=== PATIENT | female | born 1985 | race Caucasian/White ===

== ENCOUNTER → 2018-02-18 16:30 | Outpatient (CLI) | payer BC, SELFPAY ==
--- NOTE | 2018-02-18 16:43 | RAD_ITS ---
STUDY: X-RAY CHEST REASON FOR EXAM: Female, 32 years old. Chest pain TECHNIQUE: PA and lateral COMPARISON: None. FINDINGS: The lungs are clear and expanded. There is no demonstrated pleural abnormality. Normal size heart. Normal mediastinum and codie. Normal visualized pulmonary arteries. Normal visualized aortic arch and descending thoracic aorta. Normal visualized thoracic spine. Normal visualized ribs, clavicles, and shoulders. There is no demonstrated abnormality of the visualized soft tissue structures of the upper abdomen. RAD/Chest PA and Lateral IMPRESSION: Normal x-ray examination of the chest. Electronically Signed: James Lawrence MD at 6:58 EDT , Service support ,
[2018-02-18 17:46] LABS: Prothrombin Time (Protime)PT. 13.4 SECONDS (11.7-14.9)
[2018-02-18 17:47] LABS: Partial Thromboplast Time 23.8 Seconds (24.1-36.2)
[2018-02-18 17:50] LABS: Absolute Lymphocyte Count 0.78 X10^3/ul (0.83-4.51); Absolute Neutrophil Count 5.2 X10^3/uL (2.0-7.7); Basophil# 0.05 X10^3/uL; Basophil% 0.8 % (0-1); Eosinophil# 0.01 X10^3/uL; Eosinophils% 0.2 % (0-5); Hematocrit 36.3 % (37-47); Hemoglobin 12.1 g/dl (12.0-15.0); Lymphocyte # 0.78 X10^3/ul (4.0); Lymphocyte % 11.8 % (19-41); Mean Corp Hgb Conc 33.3 g/gl (32-36); Mean Corpuscular Hgb 32.5 pg (27.0-32.0); Mean Corpuscular Volume 97.6 fL (81-99); Mean Platelet Vol. 10.1 fl (6.2-12.0); Monocyte# 0.58 X10^3/uL; Monocyte% 8.8 % (0-10); Neutrophil # 5.17 X10^3/uL (2.7-7.7); Neutrophil % 77.9 % (47-70); Platelet Count 195 K/mm3 (150-450); RBC Distribution Width CV 12.7 % (11.6-14.6); RBC Distribution Width SD 44.2 fl (35.1-43.9); Red Blood Count 3.72 M/mm3 (4.2-5.4); White Blood Count 6.6 K/mm3 (4.4-11.0)
[2018-02-18 17:54] LABS: ALB/GLOB Ratio 0.7 RATIO (0.9-2.4); AST(SGOT) 25 U/L (15-37); Alanine Aminotransfer ALT/SGPT 38 U/L (13-56); Albumin, Serum 3.2 g/dL (3.2-5.0); Alkaline Phosphatase 66 U/L (45-117); Anion Gap 7 (5-15); BUN 11 mg/dL (7-18); BUN/Creat Ratio 13.3 RATIO (10-20); Calcium,Total 8.8 mg/dL (8.5-10.1); Chloride 106 mmol/L (98-107); Creatinine, Serum 0.83 mg/dL (0.55-1.02); EST Glomerular Filtration Rate 84 mL/min (>60); Est Glom Filt Rate - Afr Amer 102 mL/min (>60); Globulin 4.3 g/dL (2.2-4.2); Glucose 85 mg/dL (74-106); POSITIVE COUNT NO; POSITIVE DIFFERENTIAL NO; POSITIVE MORPHOLOGY NO; Potassium 3.9 mmol/L (3.5-5.1); Protein, Total 7.5 g/dL (6.4-8.2); Protein, Urine (Random) 92.1 mg/dL (<11.9); Protein:Creat Ratio 965 mg/g CRE (0-200); Rheumatoid Factor < 10.0 IU/mL (<15); Sodium Level 142 mmol/L (136-145)
[2018-02-18 18:29] LABS: Erythrocyte Sedimentation Rate 9 mm/hr (0-20)
[2018-02-21 20:13] LABS: Anti-Centromere B Ab <0.2 AI (0.0-0.9); Anti-Jo <0.2 AI (0.0-0.9); Anti-Scleroderma-70 AB 0.4 AI (0.0-0.9); RNP Ab >8.0 AI (0.0-0.9); SJOGREN'S Anti-SS-A test 0.2 AI (0.0-0.9); SJOGREN'S Anti-SS-B test < 0.2 AI (0.0-0.9); Smith Ab >8.0 AI (0.0-0.9)
[2018-02-22 13:26] LABS: ANTINUCLEAR ANTIBODIES DIRECT Positive (Negative); Anti-dsDNA Ab >300 IU/mL (0-9)
[2018-02-25 03:07] LABS: Complement C3 72 mg/dL (82-167); HEPATITIS B SURFACE AG Negative (Negative); Hexagonal Phase Phospholipid 0 sec (0-11); PTT-Lupus Anticoagulant 26.7 sec (0.0-51.9); QNTFERON TB Ag Minus Nil Value 0 IU/mL (.); QNTFERON TB Ag Value 0.03 IU/mL (.); QNTFERON TB Mitogen Value > 10.00 IU/mL (.); QNTFERON TB Nil Value 0.03 IU/mL (.); Thrombin Time 18.2 sec (0.0-23.0)
[2018-02-25 10:56] LABS: CCP IgG Antibodies 10 units (0-19); Hep B Surface Antibodies Reactive (.); Hep C Antibodies <0.1 s/co ratio (0.0-0.9); QNTIFERON TB Gold Negative (Negative)
== END ==
PROVIDERS: Visit Provider Internal Medicine Rheumatology
DX: M32.9 Systemic lupus erythematosus, unspecified (principal); M79.7 Fibromyalgia
CPT/HCPCS: 36415; 71046; 80053; 82570; 84156; 85025; 85598; 85610; 85652; 85670; 85730; 85732; 86038; 86140; 86160; 86200; 86225; 86235; 86431; 86480; 86706; 86803; 87340

== ENCOUNTER → 2018-03-01 07:51 | Outpatient (CLI) | payer BC, SELFPAY ==
--- NOTE | 2018-03-01 07:54 | ECHOD_ITS ---
Reason For Study: Chest Pressure increased with deep breathing Procedure This was a 2D Doppler, Color Flow transthoracic echocardiogram. The exam was of adequate technical quality. Exam performed in department. Left Ventricle Normal LV size. Apical false tendon noted. Left ventricular systolic function is normal. The estimated ejection fraction is 60 %. Normal diastology for age. No regional wall motion abnormalities noted. Right Ventricle Normal RV size. Normal systolic function. Atria Normal left atrium. Normal right atrium. No doppler evidence for ASD. Mitral Valve There is no mitral annular calcification. Normal mitral valve. Trivial mitral valve insufficiency. Tricuspid Valve Normal tricuspid valve. Mild tricuspid valve insufficiency. Right ventricular systolic pressure estimated to be 24 mmHg. Aortic Valve Trisinus/trileaflet aortic valve. Normal aortic valve. Pulmonic Valve The pulmonic valve is not well visualized. Mild (1+) pulmonic valve insufficiency. Great Vessels Normal sized aortic root. Pericardium/Pleural No pericardial effusion. MMode/2D Measurements & Calculations LVIDd: 4.4 cm IVSd: 0.76 cm Ao root diam: 2.9 cm LVIDs: 3.3 cm LVPWd: 0.90 cm LA dimension: 2.5 cm FS: 25.6 % LAV(MOD-bp): 32.0 ml LVAd ap4: 25.1 cm2 SV(MOD-sp4): 38.1 ml LAV(MOD-bp) Indexed: 20.3 ml/m2 EDV(MOD-sp4): 66.4 ml LAV(MOD-sp2): 28.8 ml EDV(sp4-el): 66.6 ml LAV(MOD-sp4): 31.2 ml LVAs ap4: 14.3 cm2 ESV(MOD-sp4): 28.3 ml ESV(sp4-el): 25.9 ml EF(MOD-sp4): 57.4 % EF(sp4-el): 61.1 % SV(sp4-el): 40.7 ml LA A4 area: 13.9 cm2 RA A4 area: 12.4 cm2 Time Measurements MV dec time: 0.22 sec Doppler Measurements & Calculations MV E max jimi: 73.6 cm/sec Lat Peak E' Jimi: 11.7 cm/sec Med Peak E' Jimi: 11.3 cm/sec MV A max jimi: 47.5 cm/sec E/E' lat: 6.3 E/E' med: 6.5 MV E/A: 1.6 MV V2 max: 76.4 cm/sec MV P1/2t max jimi: 76.4 cm/sec Ao V2 max: 125.8 cm/sec MV max P.3 mmHg MV P1/2t: 104.6 msec Ao max P.3 mmHg MV V2 mean: 45.5 cm/sec MV dec slope: 213.8 cm/sec2 Ao V2 mean: 78.3 cm/sec MV mean P.94 mmHg MVA(P1/2t): 2.1 cm2 Ao mean P.9 mmHg MV V2 VTI: 24.8 cm Ao V2 VTI: 22.6 cm LV V1 max: 101.9 cm/sec PA V2 max: 86.7 cm/sec TR max jimi: 229.1 cm/sec LV V1 max P.2 mmHg TR max P.0 mmHg LV V1 mean P.9 mmHg LV V1 mean: 64.2 cm/sec LV V1 VTI: 20.5 cm Interpretation Summary Left ventricular systolic function is normal. The estimated ejection fraction is 60 %. Apical false tendon noted. Trivial mitral valve insufficiency. Mild tricuspid valve insufficiency. Mild (1+) pulmonic valve insufficiency. Right ventricular systolic pressure estimated to be 24 mmHg. Normal diastology for age. Ordering Physician: Ashely Carrillo Referring Physician: Ashely Carrillo Performed By: Isaac Workman RCS
== END ==
PROVIDERS: Visit Provider Internal Medicine Rheumatology
DX: R07.89 Other chest pain (principal); M32.9 Systemic lupus erythematosus, unspecified; M79.7 Fibromyalgia
CPT/HCPCS: 93306

== ENCOUNTER → 2018-04-08 08:28 | Outpatient (CLI) | payer BC, SELFPAY ==
[2018-04-08] VITALS (10 sets, daily range): BP systolic 96–119; BP diastolic 58–92; PULSE 70–94; RESP 12–16; TEMP 37.2; O2SAT 94–100; BMI 20.5
--- NOTE | 2018-04-08 08:46 | CT_ITS ---
PROCEDURE: CT GUIDED PERCUTANEOUS KIDNEY BIOPSY. DATE: April 08, 2018. INDICATION: Female, 32 years old. Proteinuria. History of lupus. PHYSICIAN: Tyrone Rodriguez M.D. MEDICATIONS: 2 mg of Versed and 50 mcg fentanyl given intravenously. Conscious sedation protocol was followed and independently monitored. Conscious sedation was started at 9:43 AM and terminated at 10:01 AM. ACCESS SITE: Lower pole right kidney. NEEDLE: 18-gauge core biopsy needle SPECIMEN: 4 18-gauge cores EBL: None. COMPLICATIONS: None immediate. RADIATION DOSAGE (If Supplied By Facility): CTDIvol = ( 18 ) mGy, DLP = ( 202.82 ) mGycm. Individualized dose optimization techniques were utilized. The risks, benefits, and alternatives to the procedure and sedation were explained to the patient. The specific risk of hemorrhage requiring further treatment or intervention was detailed and accepted. Written informed consent was obtained. The patient was placed on the CT table in the prone position. Multiple axial images were obtained from the lung base through the caudal extent of the kidneys. An appropriate entry site was identified and a michele made on the skin. The skin overlying the [right ] posterior flank was prepped and draped in sterile fashion. 1% lidocaine was administered subcutaneously for local anesthesia. A 17 gauge introducer needle which was advanced. Repeat CT images confirmed good needle trajectory and tip position. The introducer needle was then advanced into the periphery of the inferior renal pole, and CT images were again obtained to confirm exact tip location. The inner stylet of the introducer needle was then removed and an 18 gauge coaxial needle was advanced thru the introducer needle and biopsy performed. A total of [ 4] passes were performed and the specimen collected was sent to Pathology for further evaluation. The needle was withdrawn. Hemostasis was achieved with manual compression and a sterile dressing was applied. Repeat CT images of the biopsy area was performed which demonstrated no gross bleeding or hematoma. The patient tolerated the procedure well without immediate complications. The patient was transported to the [floor/recovery area] in stable condition. CT/Biopsy/Inj or Needle Placement IMPRESSION: Successful CT guided percutaneous kidney biopsy. Electronically Signed: Tyrone Rodriguez MD at 10:41 EDT Tel [phone], Service support ,
[2018-04-08 08:51] LABS: Platelet Count 167 K/mm3 (150-450)
[2018-04-08 08:59] LABS: Prothrombin Time (Protime)PT. 13.4 SECONDS (11.7-14.9)
[2018-04-08 09:00] LABS: Partial Thromboplast Time 23.1 Seconds (24.1-36.2)
[2018-04-08] MEDS: Midazolam 2 MG/2 ML Syringe IV (09:43)
[2018-04-08] MEDS: fentaNYL 100 MCG/2 ML Ampul IV (09:43)
--- NOTE | 2018-04-08 10:00 | KI_PTH ---
PATIENT: EDY FOURNIER LOC: CT U#:[id number] AGE/SX: 39/F ROOM: RE04/08/[address]: Dr. Sisi Torrez MD : [id number] BED: DIS: SPEC #: [id number] RECD: 04/08/18 10:19 STATUS: ALEXIA JOSE LUIS #: [id number] EWA: 04/08/18 10:[address]: Sisi Torrez DEPT: SURGICAL PATHOLOGY RECD BY: Kathy Lemus ENTERED: 04/08/18 10:20 SP TYPE: KIDNEY BX OTHR DR: Esthela Primary Care Phys Tissues: Kidney, NOS Procedures: Electron Microscopy (ACH) Fluorescent Antibody (ACH) Sp St Grp II Kidney (ACH) Kidney Biopsy (ACH) Fluorescent antibody (ACH) add'l HEADER OPERATION: CT-guided kidney biopsy PRE-OP DIAGNOSIS: Proteinuria, lupus TISSUE SUBMITTED: Right kidney 18 gauge core x4 MICROSCOPIC DIAGNOSIS Kidney, needle biopsy: Focal active lupus nephritis, Class III (A) (ISN/RPS 2003 Classification), (10 of 29 glomeruli with active lesions, 4 with cellular crescents), see Microscopic Description and Comment. COMMENT Taken together, light immunofluorescence and electron microscopy studies show pathologic features which are consistent with an immune-complex related process. The presence of focal segmental active lesions including endocapillary proliferation and cellular crescents in the setting of systemic lupus erythematosus is indicative of Class III (A) lupus nephritis. No membranous deposits are present to warrant a concurrent Class IV categorization. MICROSCOPIC DESCRIPTION A needle biopsy is available to review. There are approximately 26 glomeruli present, 7 of which show endocapillary hypercellularity in segmental distribution and 4 of which show cellular crescents. Overall, there are 10 glomeruli that show active lesions out of 29 total glomeruli. No chronic lesions are seen. PAS and silver stain show no evidence of glomerular basement membrane duplication or spikes. Trichrome stain highlights scattered fuchsinophilic immune-type deposits. There is only minimal interstitial fibrosis and tubular atrophy. There is a diffuse mild to focally moderate inflammatory infiltrate composed predominantly of lymphocytes. Tubules appear relatively unremarkable. Vessels show no significant arterio- or arteriolosclerosis. IMMUNOFLUORESCENCE: The tissue submitted for immunofluorescence studies contains 9 glomeruli. There is granular glomerular staining for IgG (3+), IgA (2+), IgM (2+), C3 (4+), C1q (1+). Albumin and fibrinogen show nonspecific staining. ELECTRON MICROSCOPY: The tissue submitted for electron microscopy contains glomeruli. Two glomeruli are imaged. Ultrastructural examination reveals that the glomerular capillary loops are partially compressed in areas with increased mesangial matrix material and hypercellularity. The glomerular basement membranes show some variable thickening and are somewhat irregular in contour. There are occasional subendothelial electron densities along with mesangial electron-dense deposits. No definitive subepithelial deposits are appreciated. Visceral epithelial foot processes show no significant increase in effacement. Tubules appear unremarkable. GROSS DESCRIPTION The specimen is sent entirely to [facility] for diagnosis. The case is received in one container labeled with the patient's name and medical record number and consists of five cores of white-fontenot tissue measuring 1.8, 1.7, 0.8, 0.7 and 0.7 cm in length. Tissue is processed for light, immunofluorescence and electron microscopy studies.
== END ==
PROVIDERS: Referring Provider Internal Medicine Nephrology; Visit Provider Internal Medicine Nephrology
DX: R80.9 Proteinuria, unspecified (principal)
CPT/HCPCS: 50200; 36415; 77012; 85049; 85610; 85730; 88305; 88313; 88346; 88348; 88350; 99156; 99157; J7040; A4216

== ENCOUNTER → 2018-04-15 09:25 | Outpatient (CLI) | payer BC, SELFPAY ==
[2018-04-15 10:27] LABS: Absolute Lymphocyte Count 0.35 X10^3/ul (0.83-4.51); Absolute Neutrophil Count 8.5 X10^3/uL (2.0-7.7); Basophil# 0.01 X10^3/uL; Basophil% 0.1 % (0-1); Eosinophil# 0.01 X10^3/uL; Eosinophils% 0.1 % (0-5); Hemoglobin 12.7 g/dl (12.0-15.0); Lymphocyte # 0.35 X10^3/ul (4.0); Lymphocyte % 3.8 % (19-41); Mean Corp Hgb Conc 33.4 g/gl (32-36); Mean Corpuscular Hgb 32.3 pg (27.0-32.0); Mean Corpuscular Volume 96.7 fL (81-99); Mean Platelet Vol. 9.7 fl (6.2-12.0); Monocyte# 0.23 X10^3/uL; Monocyte% 2.5 % (0-10); Neutrophil # 8.47 X10^3/uL (2.7-7.7); Neutrophil % 92.8 % (47-70); Platelet Count 201 K/mm3 (150-450); RBC Distribution Width CV 11.9 % (11.6-14.6); RBC Distribution Width SD 40.9 fl (35.1-43.9); Red Blood Count 3.93 M/mm3 (4.2-5.4); White Blood Count 9.1 K/mm3 (4.4-11.0)
[2018-04-15 10:31] LABS: Differential Indicated SCAN CRITERIA MET; POSITIVE COUNT NO; POSITIVE DIFFERENTIAL YES; POSITIVE MORPHOLOGY NO
[2018-04-15 10:54] LABS: ALB/GLOB Ratio 0.7 RATIO (0.9-2.4); AST(SGOT) 18 U/L (15-37); Alanine Aminotransfer ALT/SGPT 16 U/L (13-56); Albumin, Serum 2.8 g/dL (3.2-5.0); Alkaline Phosphatase 61 U/L (45-117); Anion Gap 5 (5-15); BUN 8 mg/dL (7-18); BUN/Creat Ratio 11.9 RATIO (10-20); Calcium,Total 8.1 mg/dL (8.5-10.1); Chloride 106 mmol/L (98-107); Creatinine, Serum 0.67 mg/dL (0.55-1.02); EST Glomerular Filtration Rate 107 mL/min (>60); Est Glom Filt Rate - Afr Amer 130 mL/min (>60); Glucose 89 mg/dL (74-106); Potassium 3.6 mmol/L (3.5-5.1); Protein, Total 6.8 g/dL (6.4-8.2); Sodium Level 140 mmol/L (136-145)
[2018-04-15 12:46] LABS: Color, Urine Yellow (Yellow); Glucose, Dipstick Normal (Normal); Ketone-Dipstick Negative (Negative); Leukocyte Esterase-Dipstick 100 /ul (Negative); Nitrite-Dipstick Negative (Negative); Occult Blood-Urine 150 /ul (Negative); Protein-Dipstick 100 mg/dl (Negative); Urine Bilirubin Dipstick Negative (Negative); Urine Clarity Sl. Cloudy (Clear); Urine Urobilinogen Normal (Normal)
[2018-04-15 14:28] LABS: Protein, Urine (Random) 242.4 mg/dL (<11.9); Protein:Creat Ratio 1385 mg/g CRE (0-200)
[2018-04-16 10:56] LABS: Complement C3 74 mg/dL (82-167)
[2018-04-18 13:29] LABS: Anti-dsDNA Ab >300 IU/mL (0-9)
== END ==
PROVIDERS: Referring Provider Internal Medicine Rheumatology; Visit Provider Internal Medicine Rheumatology
DX: M32.9 Systemic lupus erythematosus, unspecified (principal); M79.7 Fibromyalgia
CPT/HCPCS: 36415; 80053; 81002; 82570; 84156; 85025; 86160; 86225

== ENCOUNTER → 2019-03-14 | Outpatient (CLI) | payer BC, SELFPAY ==
[2019-03-14 15:20] LABS: Absolute Lymphocyte Count 0.38 X10^3/uL (0.83-4.51); Absolute Neutrophil Count 3.1 X10^3/uL (2.0-7.7); Basophil# 0.02 X10^3/uL; Basophil% 0.5 % (0-1); Eosinophil# 0.01 X10^3/uL; Eosinophils% 0.3 % (0-5); Hematocrit 38.3 % (37-47); Hemoglobin 12.9 g/dL (12.0-15.0); Lymphocyte # 0.38 X10^3/ul (4.0); Mean Corp Hgb Conc 33.7 g/dL (32-36); Mean Corpuscular Hgb 32.9 pg (27.0-32.0); Mean Corpuscular Volume 97.7 fL (81-99); Mean Platelet Vol. 10.1 fl (6.2-12.0); Monocyte# 0.25 X10^3/uL; Monocyte% 6.6 % (0-10); NRBC Flagged by Analyzer 0 % (0-5); Neutrophil # 3.11 X10^3/uL (2.7-7.7); Neutrophil % 81.8 % (47-70); POSITIVE DIFFERENTIAL YES; Platelet Count 210 K/mm3 (150-450); RBC Distribution Width CV 12.3 % (11.6-14.6); Red Blood Count 3.92 M/mm3 (4.2-5.4); White Blood Count 3.8 K/mm3 (4.4-11.0)
[2019-03-14 15:24] LABS: Differential Indicated SCAN CRITERIA MET
[2019-03-14 15:40] LABS: Color, Urine Yellow (Yellow); Glucose, Dipstick Normal (Normal); Ketone-Dipstick Negative (Negative); Leukocyte Esterase-Dipstick 100 /ul (Negative); Nitrite-Dipstick Negative (Negative); Occult Blood-Urine 50 /ul (Negative); Protein-Dipstick 500 mg/dl (Negative); Urine Bilirubin Dipstick Negative (Negative); Urine Clarity Clear (Clear); Urine Urobilinogen Normal (Normal); Urine pH 6.5 (5.0 - 8.0)
[2019-03-14 15:44] LABS: ALB/GLOB Ratio 0.8 RATIO (0.9-2.4); AST(SGOT) 24 U/L (15-37); Alanine Aminotransfer ALT/SGPT 27 U/L (13-56); Albumin, Serum 2.7 g/dL (3.2-5.0); Alkaline Phosphatase 63 U/L (45-117); Anion Gap 7 (5-15); BUN 8 mg/dL (7-18); BUN/Creat Ratio 14.4 RATIO (10-20); Calcium,Total 8.3 mg/dL (8.5-10.1); Chloride 107 mmol/L (98-107); Creatinine, Serum 0.56 mg/dL (0.55-1.02); EST Glomerular Filtration Rate 132 mL/min (>60); Est Glom Filt Rate - Afr Amer 160 mL/min (>60); Globulin 3.6 g/dL (2.2-4.2); Glucose 90 mg/dL (74-106); Potassium 3.9 mmol/L (3.5-5.1); Protein, Total 6.3 g/dL (6.4-8.2); Sodium Level 143 mmol/L (136-145)
[2019-03-14 15:47] LABS: Protein, Urine (Random) 199.3 mg/dL (<11.9); Protein:Creat Ratio 4249 mg/g CRE (0-200)
[2019-03-14 15:49] LABS: Differential Comment SCANNED
[2019-03-16 12:35] LABS: Complement C3 66 mg/dL (82-167)
[2019-03-16 14:16] LABS: Anti-dsDNA Ab >300 IU/mL (0-9)
[2019-03-17 10:11] LABS: Pathologist Review Reviewed
== END | disposition home or self-care (01) ==
PROVIDERS: Referring Provider Internal Medicine Rheumatology; Visit Provider Internal Medicine Rheumatology
DX: M32.9 Systemic lupus erythematosus, unspecified (principal); M79.7 Fibromyalgia; Z79.899 Other long term (current) drug therapy
CPT/HCPCS: 36415; 80053; 81002; 82570; 84156; 85025; 86160; 86225

== ENCOUNTER → 2019-06-08 15:21 | Outpatient (CLI) | payer BC, SELFPAY ==
[2018-04-08 09:10] VITALS: BMI 20.5
[2019-06-08 17:35] LABS: Hematocrit 38.7 % (37-47); Hemoglobin 12.6 g/dL (12.0-15.0); Mean Corp Hgb Conc 32.6 g/dL (32-36); Mean Corpuscular Hgb 33.1 pg (27.0-32.0); Mean Corpuscular Volume 101.6 fL (81-99); Mean Platelet Vol. 8.9 fl (6.2-12.0); POSITIVE COUNT YES; POSITIVE DIFFERENTIAL YES; POSITIVE MORPHOLOGY YES; Platelet Count 274 K/mm3 (150-450); RBC Distribution Width CV 12.8 % (11.6-14.6); RBC Distribution Width SD 47.8 fl (35.1-43.9); Red Blood Count 3.81 M/mm3 (4.2-5.4); White Blood Count 6.9 K/mm3 (4.4-11.0)
[2019-06-08 17:38] LABS: Differential Indicated MANUAL DIFF
[2019-06-08 17:42] LABS: Color, Urine Yellow (Yellow); Glucose, Dipstick Normal (Normal); Ketone-Dipstick Negative (Negative); Leukocyte Esterase-Dipstick Negative /ul (Negative); Nitrite-Dipstick Negative (Negative); Occult Blood-Urine 25 /ul (Negative); Protein-Dipstick 100 mg/dl (Negative); Urine Bilirubin Dipstick Negative (Negative); Urine Clarity Clear (Clear); Urine Urobilinogen Normal (Normal); Urine pH 6.5 (5.0 - 8.0)
[2019-06-08 17:45] LABS: Protein, Urine (Random) 99.9 mg/dL (<11.9); Protein:Creat Ratio 2745 mg/g CRE (0-200)
[2019-06-08 17:48] LABS: ALB/GLOB Ratio 0.7 RATIO (0.9-2.4); AST(SGOT) 24 U/L (15-37); Alanine Aminotransfer ALT/SGPT 35 U/L (13-56); Albumin, Serum 2.8 g/dL (3.2-5.0); Alkaline Phosphatase 72 U/L (45-117); Anion Gap 6 (5-15); BUN 9 mg/dL (7-18); BUN/Creat Ratio 14.2 RATIO (10-20); Calcium,Total 8.9 mg/dL (8.5-10.1); Chloride 106 mmol/L (98-107); Creatinine, Serum 0.64 mg/dL (0.55-1.02); EST Glomerular Filtration Rate 113 mL/min (>60); Est Glom Filt Rate - Afr Amer 137 mL/min (>60); Globulin 3.9 g/dL (2.2-4.2); Glucose 122 mg/dL (74-106); Potassium 3.6 mmol/L (3.5-5.1); Protein, Total 6.7 g/dL (6.4-8.2); Sodium Level 143 mmol/L (136-145)
[2019-06-08 19:07] LABS: Basophil 1 % (0-1); Blast 1 % (0-0); Eosinophil 1 % (0-5); Lymphocyte 9 % (19-41); Metamyelocyte 6 % (0-1); Monocyte 10 % (0-10); Myelocyte 9 (0-0); Neutrophil-Band 6 % (0-5); Neutrophil-Segmented 57 % (47-70); Total Cells Counted 100 (MANUAL DIFF)
[2019-06-08 19:11] LABS: Absolute Lymphocyte Count 0.61 X10^3/uL (0.83-4.51); Absolute Neutrophil Count 4.4 X10^3/uL (2.0-7.7)
[2019-06-08 19:12] LABS: Anisocytosis 1+; Macrocytosis 1+; Platelet Estimate ADEQUATE (ADEQ)
[2019-06-09 09:32] LABS: Pathologist Review Reviewed
[2019-06-10 13:03] LABS: Complement C3 115 mg/dL (82-167)
[2019-06-12 14:02] LABS: Anti-dsDNA Ab 117 IU/mL (0-9)
== END ==
PROVIDERS: Referring Provider Internal Medicine Rheumatology; Visit Provider Internal Medicine Rheumatology
DX: M32.9 Systemic lupus erythematosus, unspecified (principal); M79.7 Fibromyalgia; Z79.899 Other long term (current) drug therapy
CPT/HCPCS: 36415; 80053; 81002; 82570; 84156; 85025; 86160; 86225

== ENCOUNTER → 2019-07-28 | Outpatient (CLI) | payer BC, SELFPAY ==
[2018-04-08 09:10] VITALS: BMI 20.5
[2019-07-28 17:25] LABS: Absolute Lymphocyte Count 0.27 X10^3/uL (0.83-4.51); Absolute Neutrophil Count 3.3 X10^3/uL (2.0-7.7); Basophil# 0.03 X10^3/uL; Basophil% 0.8 % (0-1); Eosinophil# 0.06 X10^3/uL; Eosinophils% 1.6 % (0-5); Hematocrit 37.4 % (37-47); Hemoglobin 12.4 g/dL (12.0-15.0); Lymphocyte # 0.27 X10^3/ul (4.0); Mean Corp Hgb Conc 33.2 g/dL (32-36); Mean Corpuscular Volume 99.5 fL (81-99); Mean Platelet Vol. 10.1 fl (6.2-12.0); Monocyte# 0.22 X10^3/uL; Monocyte% 5.7 % (0-10); NRBC Flagged by Analyzer 0 % (0-5); Neutrophil # 3.27 X10^3/uL (2.7-7.7); Neutrophil % 84.6 % (47-70); POSITIVE DIFFERENTIAL YES; Platelet Count 216 K/mm3 (150-450); RBC Distribution Width CV 12.1 % (11.6-14.6); RBC Distribution Width SD 44.4 fl (35.1-43.9); Red Blood Count 3.76 M/mm3 (4.2-5.4); White Blood Count 3.9 K/mm3 (4.4-11.0)
[2019-07-28 17:43] LABS: ALB/GLOB Ratio 0.9 RATIO (0.9-2.4); AST(SGOT) 17 U/L (15-37); Alanine Aminotransfer ALT/SGPT 32 U/L (13-56); Albumin, Serum 3.2 g/dL (3.2-5.0); Alkaline Phosphatase 72 U/L (45-117); Anion Gap 4 (5-15); BUN 15 mg/dL (7-18); BUN/Creat Ratio 22.4 RATIO (10-20); Calcium,Total 8.6 mg/dL (8.5-10.1); Chloride 107 mmol/L (98-107); Creatinine, Serum 0.67 mg/dL (0.55-1.02); EST Glomerular Filtration Rate 106 mL/min (>60); Est Glom Filt Rate - Afr Amer 129 mL/min (>60); Globulin 3.7 g/dL (2.2-4.2); Glucose 100 mg/dL (74-106); Potassium 3.8 mmol/L (3.5-5.1); Protein, Total 6.9 g/dL (6.4-8.2); Sodium Level 141 mmol/L (136-145)
[2019-07-28 17:49] LABS: Color, Urine Yellow (Yellow); Glucose, Dipstick Normal (Normal); Ketone-Dipstick Negative (Negative); Leukocyte Esterase-Dipstick 100 /ul (Negative); Nitrite-Dipstick Negative (Negative); Occult Blood-Urine 25 /ul (Negative); Protein-Dipstick 100 mg/dl (Negative); Urine Bilirubin Dipstick Negative (Negative); Urine Clarity Clear (Clear); Urine Urobilinogen Normal (Normal); Urine pH 6.5 (5.0 - 8.0)
[2019-07-28 17:50] LABS: Differential Indicated SCAN CRITERIA MET
[2019-07-28 18:00] LABS: Protein, Urine (Random) 70.9 mg/dL (<11.9); Protein:Creat Ratio 1098 mg/g CRE (0-200)
[2019-07-28 18:11] LABS: Differential Comment SCANNED
[2019-07-30 16:21] LABS: Complement C3 91 mg/dL (82-167)
[2019-07-31 12:49] LABS: Anti-dsDNA Ab 112 IU/mL (0-9)
[2019-07-31 13:57] LABS: Pathologist Review Reviewed
== END | disposition home or self-care (01) ==
LOC: MTLAB 14:58
PROVIDERS: Referring Provider Internal Medicine Rheumatology; Visit Provider Internal Medicine Rheumatology
DX: M32.9 Systemic lupus erythematosus, unspecified (principal); M79.7 Fibromyalgia; Z79.899 Other long term (current) drug therapy
CPT/HCPCS: 36415; 80053; 81002; 82570; 84156; 85025; 86160; 86225

== ENCOUNTER → 2019-11-27 15:00 | Outpatient (CLI) | payer BC, SELFPAY ==
[2018-04-08 09:10] VITALS: BMI 20.5
[2019-11-27 17:56] LABS: Color, Urine Yellow (Yellow); Glucose, Dipstick Normal (Normal); Ketone-Dipstick Negative (Negative); Leukocyte Esterase-Dipstick Negative /ul (Negative); Nitrite-Dipstick Negative (Negative); Occult Blood-Urine 50 /ul (Negative); Protein-Dipstick 30 mg/dl (Negative); Urine Bilirubin Dipstick Negative (Negative); Urine Clarity Clear (Clear); Urine Urobilinogen Normal (Normal)
[2019-11-27 18:13] LABS: Absolute Lymphocyte Count 0.46 X10^3/uL (0.83-4.51); Absolute Neutrophil Count 2.4 X10^3/uL (2.0-7.7); Basophil# 0.03 X10^3/uL; Basophil% 0.9 % (0-1); Eosinophil# 0.02 X10^3/uL; Eosinophils% 0.6 % (0-5); Hematocrit 37.5 % (37-47); Hemoglobin 12.4 g/dL (12.0-15.0); Lymphocyte # 0.46 X10^3/ul (4.0); Lymphocyte % 13.9 % (19-41); Mean Corp Hgb Conc 33.1 g/dL (32-36); Mean Corpuscular Hgb 33.4 pg (27.0-32.0); Mean Corpuscular Volume 101.1 fL (81-99); Monocyte# 0.43 X10^3/uL; NRBC Flagged by Analyzer 0 % (0-5); Neutrophil # 2.36 X10^3/uL (2.7-7.7); POSITIVE DIFFERENTIAL YES; Platelet Count 219 K/mm3 (150-450); RBC Distribution Width CV 12.9 % (11.6-14.6); RBC Distribution Width SD 47.2 fl (35.1-43.9); Red Blood Count 3.71 M/mm3 (4.2-5.4); White Blood Count 3.3 K/mm3 (4.4-11.0)
[2019-11-27 18:17] LABS: Protein, Urine (Random) 78.3 mg/dL (<11.9); Protein:Creat Ratio 567 mg/g CRE (0-200)
[2019-11-27 18:19] LABS: Differential Indicated SCAN CRITERIA MET
[2019-11-27 18:37] LABS: ALB/GLOB Ratio 0.8 RATIO (0.9-2.4); AST(SGOT) 18 U/L (15-37); Alanine Aminotransfer ALT/SGPT 28 U/L (13-56); Albumin, Serum 3.2 g/dL (3.2-5.0); Alkaline Phosphatase 67 U/L (45-117); Anion Gap 6 (5-15); BUN 11 mg/dL (7-18); BUN/Creat Ratio 16.3 RATIO (10-20); Calcium,Total 8.5 mg/dL (8.5-10.1); Chloride 107 mmol/L (98-107); Creatinine, Serum 0.68 mg/dL (0.55-1.02); EST Glomerular Filtration Rate 105 mL/min (>60); Est Glom Filt Rate - Afr Amer 127 mL/min (>60); Globulin 3.9 g/dL (2.2-4.2); Glucose 92 mg/dL (74-106); Potassium 3.6 mmol/L (3.5-5.1); Protein, Total 7.1 g/dL (6.4-8.2); Sodium Level 140 mmol/L (136-145)
[2019-11-27 19:18] LABS: Anisocytosis 1+; Platelet Estimate ADEQUATE (ADEQ); Red Cell Morphology N CHROM NORMAL (NORM C&C)
[2019-11-28 11:57] LABS: Pathologist Review Reviewed
[2019-11-29 06:18] LABS: Complement C3 77 mg/dL (82-167)
[2019-11-29 18:18] LABS: Anti-dsDNA Ab 160 IU/mL (0-9)
== END ==
PROVIDERS: Referring Provider Internal Medicine Rheumatology; Visit Provider Internal Medicine Rheumatology
DX: M32.9 Systemic lupus erythematosus, unspecified (principal); Z79.899 Other long term (current) drug therapy; M79.7 Fibromyalgia
CPT/HCPCS: 36415; 80053; 81002; 82570; 84156; 85025; 86160; 86225

== ENCOUNTER → 2020-02-20 | Outpatient (CLI) | payer BC, SELFPAY ==
[2018-04-08 09:10] VITALS: BMI 20.5
[2020-02-20 17:42] LABS: Absolute Lymphocyte Count 0.29 X10^3/uL (0.83-4.51); Absolute Neutrophil Count 5.6 X10^3/uL (2.0-7.7); Basophil# 0.03 X10^3/uL; Basophil% 0.5 % (0-1); Hematocrit 38.9 % (37-47); Lymphocyte # 0.29 X10^3/ul (4.0); Lymphocyte % 4.5 % (19-41); Mean Corp Hgb Conc 33.4 g/dL (32-36); Mean Corpuscular Hgb 32.7 pg (27.0-32.0); Mean Corpuscular Volume 97.7 fL (81-99); Mean Platelet Vol. 10.1 fl (6.2-12.0); Monocyte# 0.47 X10^3/uL; Monocyte% 7.3 % (0-10); NRBC Flagged by Analyzer 0 % (0-5); Neutrophil # 5.59 X10^3/uL (2.7-7.7); Neutrophil % 87.4 % (47-70); POSITIVE DIFFERENTIAL YES; Platelet Count 220 K/mm3 (150-450); RBC Distribution Width CV 12.1 % (11.6-14.6); RBC Distribution Width SD 43.9 fl (35.1-43.9); Red Blood Count 3.98 M/mm3 (4.2-5.4); White Blood Count 6.4 K/mm3 (4.4-11.0)
[2020-02-20 17:43] LABS: Color, Urine Yellow (Yellow); Glucose, Dipstick Normal (Normal); Ketone-Dipstick Negative (Negative); Leukocyte Esterase-Dipstick Negative /ul (Negative); Nitrite-Dipstick Negative (Negative); Occult Blood-Urine 25 /ul (Negative); Protein-Dipstick 100 mg/dl (Negative); Specific Gravity, Urine 1.015 (1.002-1.030); Urine Bilirubin Dipstick Negative (Negative); Urine Clarity Clear (Clear); Urine Urobilinogen Normal (Normal)
[2020-02-20 18:01] LABS: ALB/GLOB Ratio 0.9 RATIO (0.9-2.4); AST(SGOT) 20 U/L (15-37); Alanine Aminotransfer ALT/SGPT 32 U/L (13-56); Albumin, Serum 3.4 g/dL (3.2-5.0); Alkaline Phosphatase 68 U/L (45-117); Anion Gap 5 (5-15); BUN 13 mg/dL (7-18); BUN/Creat Ratio 23.4 RATIO (10-20); Calcium,Total 8.5 mg/dL (8.5-10.1); Chloride 104 mmol/L (98-107); Creatinine, Serum 0.56 mg/dL (0.55-1.02); EST Glomerular Filtration Rate 132 mL/min (>60); Est Glom Filt Rate - Afr Amer 160 mL/min (>60); Globulin 3.9 g/dL (2.2-4.2); Glucose 93 mg/dL (74-106); Potassium 3.7 mmol/L (3.5-5.1); Protein, Total 7.3 g/dL (6.4-8.2); Protein, Urine (Random) 77.8 mg/dL (<11.9); Protein:Creat Ratio 1565 mg/g CRE (0-200); Sodium Level 139 mmol/L (136-145)
[2020-02-20 18:52] LABS: Differential Indicated SCAN CRITERIA MET
[2020-02-20 19:31] LABS: Platelet Estimate ADEQUATE (ADEQ)
[2020-02-20 19:32] LABS: Anisocytosis RARE; Macrocytosis RARE; Red Cell Morphology N CHROM NORMAL (NORM C&C)
[2020-02-22 08:18] LABS: Complement C3 89 mg/dL (82-167)
[2020-02-23 02:12] LABS: Anti-dsDNA Ab 125 IU/mL (0-9)
== END | disposition home or self-care (01) ==
LOC: MTLAB 14:59
PROVIDERS: Referring Provider Internal Medicine Rheumatology; Visit Provider Internal Medicine Rheumatology
DX: M32.9 Systemic lupus erythematosus, unspecified (principal); M79.7 Fibromyalgia; Z79.899 Other long term (current) drug therapy
CPT/HCPCS: 36415; 80053; 81002; 82570; 84156; 85025; 86160; 86225

== ENCOUNTER → 2020-05-03 11:46 | Outpatient (CLI) | payer BC, SELFPAY ==
[2018-04-08 09:10] VITALS: BMI 20.5
[2020-05-03 14:54] LABS: Absolute Lymphocyte Count 0.27 X10^3/uL (0.83-4.51); Basophil# 0.01 X10^3/uL; Basophil% 0.2 % (0-1); Eosinophil# 0.01 X10^3/uL; Eosinophils% 0.2 % (0-5); Hematocrit 37.8 % (37-47); Hemoglobin 12.4 g/dL (12.0-15.0); Lymphocyte # 0.27 X10^3/ul (4.0); Lymphocyte % 4.1 % (19-41); Mean Corp Hgb Conc 32.8 g/dL (32-36); Mean Corpuscular Hgb 33.5 pg (27.0-32.0); Mean Corpuscular Volume 102.2 fL (81-99); Mean Platelet Vol. 9.9 fl (6.2-12.0); Monocyte# 0.37 X10^3/uL; Monocyte% 5.6 % (0-10); NRBC Flagged by Analyzer 0 % (0-5); Neutrophil # 5.97 X10^3/uL (2.7-7.7); Neutrophil % 89.6 % (47-70); POSITIVE DIFFERENTIAL YES; Platelet Count 206 K/mm3 (150-450); RBC Distribution Width CV 12.6 % (11.6-14.6); RBC Distribution Width SD 46.8 fl (35.1-43.9); White Blood Count 6.7 K/mm3 (4.4-11.0)
[2020-05-03 15:01] LABS: Differential Indicated SCAN CRITERIA MET
[2020-05-03 15:02] LABS: Protein, Urine (Random) 215.7 mg/dL (<11.9); Protein:Creat Ratio 787 mg/g CRE (0-200)
[2020-05-03 15:04] LABS: ALB/GLOB Ratio 0.8 RATIO (0.9-2.4); AST(SGOT) 12 U/L (15-37); Alanine Aminotransfer ALT/SGPT 18 U/L (13-56); Albumin, Serum 3.2 g/dL (3.2-5.0); Alkaline Phosphatase 70 U/L (45-117); Anion Gap 2 (5-15); BUN 9 mg/dL (7-18); BUN/Creat Ratio 13.7 RATIO (10-20); Calcium,Total 8.6 mg/dL (8.5-10.1); Chloride 108 mmol/L (98-107); Creatinine, Serum 0.66 mg/dL (0.55-1.02); EST Glomerular Filtration Rate 108 mL/min (>60); Est Glom Filt Rate - Afr Amer 131 mL/min (>60); Globulin 3.8 g/dL (2.2-4.2); Glucose 97 mg/dL (74-106); Potassium 3.9 mmol/L (3.5-5.1); Sodium Level 140 mmol/L (136-145)
[2020-05-03 15:50] LABS: Color, Urine Yellow (Yellow); Glucose, Dipstick Normal (Normal); Ketone-Dipstick 5 mg/dl (Negative); Leukocyte Esterase-Dipstick 25 /ul (Negative); Nitrite-Dipstick Negative (Negative); Occult Blood-Urine 25 /ul (Negative); Protein-Dipstick 30 mg/dl (Negative); Urine Clarity Clear (Clear); Urine Urobilinogen Normal (Normal)
[2020-05-03 15:54] LABS: Urine Bilirubin Dipstick 1 mg/dL (Negative)
[2020-05-06 01:42] LABS: Complement C3 89 mg/dL (82-167)
[2020-05-06 20:04] LABS: Anti-dsDNA Ab 116 IU/mL (0-9)
== END ==
PROVIDERS: Referring Provider Internal Medicine Rheumatology; Visit Provider Internal Medicine Rheumatology
DX: M32.9 Systemic lupus erythematosus, unspecified (principal); M79.7 Fibromyalgia; Z79.899 Other long term (current) drug therapy
CPT/HCPCS: 36415; 80053; 81002; 82570; 84156; 85025; 86160; 86225

== ENCOUNTER → 2020-11-05 15:26 | Outpatient (CLI) | payer BC, SELFPAY ==
[2018-04-08 09:10] VITALS: BMI 20.5
[2020-11-05 18:01] LABS: Absolute Neutrophil Count 3.1 X10^3/uL (2.0-7.7); Basophil# 0.02 X10^3/uL; Basophil% 0.5 % (0-1); Hematocrit 40.2 % (37-47); Hemoglobin 13.6 g/dL (12.0-15.0); Lymphocyte % 7.8 % (19-41); Mean Corp Hgb Conc 33.8 g/dL (32-36); Mean Corpuscular Hgb 34.2 pg (27.0-32.0); Mean Platelet Vol. 10.2 fl (6.2-12.0); Monocyte# 0.43 X10^3/uL; Monocyte% 11.2 % (0-10); NRBC Flagged by Analyzer 0 % (0-5); Neutrophil # 3.08 X10^3/uL (2.7-7.7); POSITIVE DIFFERENTIAL YES; Platelet Count 236 K/mm3 (150-450); RBC Distribution Width CV 12.4 % (11.6-14.6); Red Blood Count 3.98 M/mm3 (4.2-5.4); White Blood Count 3.9 K/mm3 (4.4-11.0)
[2020-11-05 18:07] LABS: Differential Indicated SCAN CRITERIA MET
[2020-11-05 18:12] LABS: Color, Urine Yellow (Yellow); Glucose, Dipstick Normal (Normal); Ketone-Dipstick Negative (Negative); Leukocyte Esterase-Dipstick Negative /ul (Negative); Nitrite-Dipstick Negative (Negative); Occult Blood-Urine Negative /ul (Negative); Protein-Dipstick 30 mg/dl (Negative); Urine Bilirubin Dipstick Negative (Negative); Urine Clarity Clear (Clear); Urine Urobilinogen Normal (Normal); Urine pH 6.5 (5.0 - 8.0)
[2020-11-05 18:32] LABS: AST(SGOT) 22 U/L (15-37); Alanine Aminotransfer ALT/SGPT 53 U/L (13-56); Albumin, Serum 3.4 g/dL (3.2-5.0); Alkaline Phosphatase 69 U/L (45-117); Anion Gap 7 (5-15); BUN 10 mg/dL (7-18); BUN/Creat Ratio 15.4 RATIO (10-20); Calcium,Total 8.4 mg/dL (8.5-10.1); Chloride 106 mmol/L (98-107); Creatinine, Serum 0.65 mg/dL (0.55-1.02); EST Glomerular Filtration Rate 109 mL/min (>60); Est Glom Filt Rate - Afr Amer 132 mL/min (>60); Globulin 3.5 g/dL (2.2-4.2); Glucose 104 mg/dL (74-106); Potassium 3.8 mmol/L (3.5-5.1); Protein, Total 6.9 g/dL (6.4-8.2); Sodium Level 139 mmol/L (136-145)
[2020-11-05 18:37] LABS: Protein, Urine (Random) 27.8 mg/dL (<11.9); Protein:Creat Ratio 500 mg/g CRE (0-200)
[2020-11-05 18:44] LABS: Differential Comment SCANNED
[2020-11-06 13:42] LABS: Pathologist Review Reviewed
[2020-11-07 09:00] LABS: Complement C3 90 mg/dL (82-167)
[2020-11-07 18:44] LABS: Anti-dsDNA Ab 74 IU/mL (0-9)
== END ==
PROVIDERS: Referring Provider Internal Medicine Rheumatology; Visit Provider Internal Medicine Rheumatology
DX: M32.9 Systemic lupus erythematosus, unspecified (principal); M06.4 Inflammatory polyarthropathy; M79.7 Fibromyalgia; Z79.899 Other long term (current) drug therapy
CPT/HCPCS: 36415; 80053; 81002; 82570; 84156; 85025; 86160; 86225

== ENCOUNTER → 2020-12-31 15:26 | Outpatient (CLI) | payer BC, SELFPAY ==
[2018-04-08 09:10] VITALS: BMI 20.5
[2020-12-31 17:45] LABS: Absolute Lymphocyte Count 0.29 X10^3/uL (0.83-4.51); Absolute Neutrophil Count 3.7 X10^3/uL (2.0-7.7); Basophil# 0.02 X10^3/uL; Basophil% 0.5 % (0-1); Hematocrit 38.6 % (37-47); Lymphocyte # 0.29 X10^3/ul (0.83-4.51); Lymphocyte % 6.6 % (19-41); Mean Corp Hgb Conc 33.7 g/dL (32-36); Mean Corpuscular Hgb 33.8 pg (27.0-32.0); Mean Corpuscular Volume 100.3 fL (81-99); Mean Platelet Vol. 10.2 fl (6.2-12.0); Monocyte# 0.38 X10^3/uL; Monocyte% 8.6 % (0-10); NRBC Flagged by Analyzer 0 % (0-5); Neutrophil # 3.71 X10^3/uL (2.7-7.7); Neutrophil % 84.1 % (47-70); POSITIVE DIFFERENTIAL YES; Platelet Count 208 K/mm3 (150-450); RBC Distribution Width CV 11.8 % (11.6-14.6); RBC Distribution Width SD 42.7 fl (35.1-43.9); Red Blood Count 3.85 M/mm3 (4.2-5.4); White Blood Count 4.4 K/mm3 (4.4-11.0)
[2020-12-31 17:53] LABS: Color, Urine Yellow (Yellow); Glucose, Dipstick Normal (Normal); Ketone-Dipstick Negative (Negative); Leukocyte Esterase-Dipstick Negative /ul (Negative); Nitrite-Dipstick Negative (Negative); Occult Blood-Urine Negative /ul (Negative); Protein-Dipstick Negative (Negative); Urine Bilirubin Dipstick Negative (Negative); Urine Clarity Clear (Clear); Urine Urobilinogen Normal (Normal)
[2020-12-31 18:08] LABS: Protein, Urine (Random) 17.4 mg/dL (<11.9); Protein:Creat Ratio 414 mg/g CRE (0-200)
[2020-12-31 18:10] LABS: ALB/GLOB Ratio 0.9 RATIO (0.9-2.4); AST(SGOT) 19 U/L (15-37); Alanine Aminotransfer ALT/SGPT 38 U/L (13-56); Albumin, Serum 3.4 g/dL (3.2-5.0); Alkaline Phosphatase 62 U/L (45-117); Anion Gap 5 (5-15); BUN 11 mg/dL (7-18); BUN/Creat Ratio 20.9 RATIO (10-20); Calcium,Total 8.5 mg/dL (8.5-10.1); Chloride 106 mmol/L (98-107); Creatinine, Serum 0.53 mg/dL (0.55-1.02); EST Glomerular Filtration Rate 140 mL/min (>60); Est Glom Filt Rate - Afr Amer 169 mL/min (>60); Globulin 3.6 g/dL (2.2-4.2); Glucose 99 mg/dL (74-106); Potassium 4.1 mmol/L (3.5-5.1); Sodium Level 139 mmol/L (136-145)
[2020-12-31 18:34] LABS: Differential Indicated SCAN CRITERIA MET
[2020-12-31 18:35] LABS: Anisocytosis 1+; Platelet Estimate ADEQUATE (ADEQ); Red Cell Morphology N CHROM NORMAL (NORM C&C)
[2020-12-31 18:36] LABS: Macrocytosis 1+
[2021-01-02 16:13] LABS: Anti-dsDNA Ab 80 IU/mL (0-9)
[2021-01-02 16:33] LABS: Complement C3 93 mg/dL (82-167)
== END ==
PROVIDERS: Referring Provider Internal Medicine Rheumatology; Visit Provider Internal Medicine Rheumatology
DX: M32.9 Systemic lupus erythematosus, unspecified (principal); M06.4 Inflammatory polyarthropathy; M79.7 Fibromyalgia; Z79.899 Other long term (current) drug therapy
CPT/HCPCS: 36415; 80053; 81002; 82570; 84156; 85025; 86160; 86225

== ENCOUNTER → 2021-03-21 13:02 | Outpatient (CLI) | payer BC, SELFPAY ==
[2021-03-21 15:20] LABS: Color, Urine Yellow (Yellow); Glucose, Dipstick Normal (Normal); Ketone-Dipstick Negative (Negative); Leukocyte Esterase-Dipstick 500 /ul (Negative); Nitrite-Dipstick Negative (Negative); Occult Blood-Urine 25 /ul (Negative); Protein, Urine (Random) 14.6 mg/dL (<11.9); Protein-Dipstick 15 mg/dl (Negative); Protein:Creat Ratio 549 mg/g CRE (0-200); Urine Bilirubin Dipstick Negative (Negative); Urine Clarity Sl. Cloudy (Clear); Urine Urobilinogen Normal (Normal)
[2021-03-21 15:39] LABS: ALB/GLOB Ratio 0.8 RATIO (0.9-2.4); AST(SGOT) 38 U/L (15-37); Alanine Aminotransfer ALT/SGPT 77 U/L (13-56); Albumin, Serum 3.3 g/dL (3.2-5.0); Alkaline Phosphatase 60 U/L (45-117); Anion Gap 4 (5-15); BUN 6 mg/dL (7-18); BUN/Creat Ratio 10.4 RATIO (10-20); Calcium,Total 8.9 mg/dL (8.5-10.1); Chloride 106 mmol/L (98-107); Creatinine, Serum 0.58 mg/dL (0.55-1.02); EST Glomerular Filtration Rate 125 mL/min (>60); Est Glom Filt Rate - Afr Amer 151 mL/min (>60); Glucose 92 mg/dL (74-106); Potassium 3.5 mmol/L (3.5-5.1); Protein, Total 7.3 g/dL (6.4-8.2); Sodium Level 138 mmol/L (136-145)
[2021-03-21 17:24] LABS: Absolute Lymphocyte Count 0.23 X10^3/uL (0.83-4.51); Absolute Neutrophil Count 4.5 X10^3/uL (2.0-7.7); Basophil# 0.02 X10^3/uL; Basophil% 0.4 % (0-1); Hematocrit 38.4 % (37-47); Hemoglobin 13.1 g/dL (12.0-15.0); Lymphocyte # 0.23 X10^3/ul (0.83-4.51); Lymphocyte % 4.5 % (19-41); Mean Corp Hgb Conc 34.1 g/dL (32-36); Mean Corpuscular Hgb 34.2 pg (27.0-32.0); Mean Corpuscular Volume 100.3 fL (81-99); Mean Platelet Vol. 10.8 fl (6.2-12.0); Monocyte# 0.34 X10^3/uL; Monocyte% 6.6 % (0-10); NRBC Flagged by Analyzer 0 % (0-5); Neutrophil # 4.51 X10^3/uL (2.7-7.7); Neutrophil % 88.1 % (47-70); POSITIVE DIFFERENTIAL YES; Platelet Count 210 K/mm3 (150-450); RBC Distribution Width CV 11.9 % (11.6-14.6); Red Blood Count 3.83 M/mm3 (4.2-5.4); White Blood Count 5.1 K/mm3 (4.4-11.0)
[2021-03-21 17:33] LABS: Differential Indicated SCAN CRITERIA MET
[2021-03-21 18:07] LABS: Platelet Estimate ADEQUATE (ADEQ); Red Cell Morphology NORM C+C NORMAL (NORM C&C)
[2021-03-23 09:57] LABS: Complement C3 88 mg/dL (82-167)
[2021-03-25 17:06] LABS: Anti-dsDNA Ab 61 IU/mL (0-9)
== END ==
PROVIDERS: Referring Provider Internal Medicine Rheumatology; Visit Provider Internal Medicine Rheumatology
DX: M32.9 Systemic lupus erythematosus, unspecified (principal); M06.4 Inflammatory polyarthropathy; M79.7 Fibromyalgia; Z79.899 Other long term (current) drug therapy
CPT/HCPCS: 36415; 80053; 81002; 82570; 84156; 85025; 86160; 86225

== ENCOUNTER → 2021-04-18 07:58 | Outpatient (CLI) | payer BC, SELFPAY ==
--- NOTE | 2021-04-18 08:02 | US_ITS ---
STUDY: ABDOMINAL ULTRASOUND - RIGHT UPPER QUADRANT REASON FOR VISIT: Female, 35 years old, elevated LFTs TECHNIQUE: Ultrasound evaluation of the right upper quadrant was performed with real-time and static bermeo-scale imaging. TECHNICAL QUALITY: Adequate. COMPARISON: None. FINDINGS: Liver: The liver measures 16.7 cm. There is mild fatty infiltration of the liver. The bile ducts are within normal limits. There is hepatic color flow. The direction of portal flow is hepatopetal. There is no demonstrated mass lesion. Gallbladder: Normal distended gallbladder. The gallbladder wall measures 1.3 mm. There is a negative sonographic Bustamante''s sign. There is no pericholecystic fluid. There are no gallstones. Common Bile Duct (C.B.D.): The common bile duct measures 2.4 mm. Pancreas: Normal size of the head, body and tail of the pancreas. There is normal echogenicity of the pancreas. There is no demonstrated pancreatic mass or cyst. Right Kidney: Normal size of the right kidney. The right kidney measures 11.2 x 5.1 x 4.2 cm. Normal renal cortex. The right cortex measures 1.2 cm. There is no demonstrated renal mass or cyst. There is no right hydronephrosis. US/Liver IMPRESSION: Mild fatty infiltration of the liver, no discrete lesion Electronically Signed: Matt Madison MD at 11:05 EST , Service support ,
== END ==
PROVIDERS: Referring Provider Internal Medicine Rheumatology; Visit Provider Internal Medicine Rheumatology
DX: M32.9 Systemic lupus erythematosus, unspecified (principal); M06.4 Inflammatory polyarthropathy; M79.7 Fibromyalgia; Z79.899 Other long term (current) drug therapy
CPT/HCPCS: 76705

== ENCOUNTER → 2021-05-05 12:53 | Outpatient (CLI) | payer BC, SELFPAY ==
[2021-05-05 15:46] LABS: ALB/GLOB Ratio 0.8 RATIO (0.9-2.4); AST(SGOT) 23 U/L (15-37); Alanine Aminotransfer ALT/SGPT 37 U/L (13-56); Albumin, Serum 3.2 g/dL (3.2-5.0); Alkaline Phosphatase 57 U/L (45-117); Anion Gap 5 (5-15); BUN 8 mg/dL (7-18); BUN/Creat Ratio 13.1 RATIO (10-20); Calcium,Total 8.9 mg/dL (8.5-10.1); Chloride 105 mmol/L (98-107); Creatinine, Serum 0.61 mg/dL (0.55-1.02); EST Glomerular Filtration Rate 117 mL/min (>60); Est Glom Filt Rate - Afr Amer 142 mL/min (>60); Glucose 138 mg/dL (74-106); Potassium 3.8 mmol/L (3.5-5.1); Protein, Total 7.2 g/dL (6.4-8.2); Sodium Level 139 mmol/L (136-145)
== END ==
PROVIDERS: Referring Provider Internal Medicine Rheumatology; Visit Provider Internal Medicine Rheumatology
DX: M32.9 Systemic lupus erythematosus, unspecified (principal); M06.4 Inflammatory polyarthropathy; M79.7 Fibromyalgia; Z79.899 Other long term (current) drug therapy
CPT/HCPCS: 36415; 80053